=== PATIENT | female | born 1960 | race Caucasian/White ===

== ENCOUNTER 2024-02-28 10:27 | Emergency (ER) | payer OTHER, SELFPAY ==
[2024-02-28] VITALS (10 sets, daily range): BP systolic 94–123; BP diastolic 67–85; PULSE 71–98; RESP 18–98; TEMP 36.7–37.1; O2SAT 18–100; BMI 21.9
[2024-02-28] MEDS: LACTATED RINGERS 1000ML 1,000 ML 999 ML IV (10:56)
--- NOTE | 2024-02-28 11:03 | ECG_ITS ---
APPROVED REPORT Exam: Resting ECG HR:91 bpm ECG Measurements Heart Rate 91 AXES WV 155 P 81 QRSd 81 QRS 79 QT 349 T 74 QTc 398 Conclusion SINUS RHYTHM NORMAL ECG UNCONFIRMED REPORT Electronically signed by : DUNIA NOWAK, 03/02/2024 05:48:31
[2024-02-28 11:04] LABS: Basophils # 0.1 K/mm3 (0-0.2); Basophils % 0.4 % (0.1-2.0); Eosinophils % 0.3 % (0.1-12.0); Hematocrit 33.5 % (37.0-47.0); Lymphocytes # 0.5 K/mm3 (0.7-4.5); Lymphocytes % 3.3 % (10-50); Mean Corpuscular HGB Conc 35.8 g/dL (31.8-35.4); Mean Corpuscular Hemoglobin 28.7 pg (27.0-31.2); Mean Corpuscular Volume 80.1 fl (81-99); Mean Platelet Volume 11.4 fl (7.4-10.4); Monocytes # 0.4 K/mm3 (0.1-1.0); Monocytes % 2.4 % (1.7-9.3); Neutrophils # 14.7 K/mm3 (1.8-7.8); Platelet Count 86 K/mm3 (142-424); Red Blood Count 4.18 M/mm3 (4.20-5.40); Red Cell Distribution Width 13.3 % (11.5-17.5)
[2024-02-28 11:08] LABS: Albumin Level 3.2 g/dl (3.5-5.0); Chloride 94 mmol/L (98-107); Potassium 3.4 mmoL/L (3.5-5.1); Sodium 124 mmol/L (136-145)
[2024-02-28 11:10] LABS: Alanine Aminotransferase 55 U/L (12-78); Anion Gap 17.4 mEq/L (5-15); Aspartate Amino Transferase 38 U/L (14-36); Carbon Dioxide 16 mmol/L (22.0-30.0); Creatinine Clearance Estimated 13 mL/min (50-200); Estimated Glomerular Filt Rate 12 ml/min (>60); GFR (African American) 14 ML/MIN (>60)
[2024-02-28 11:11] LABS: Alkaline Phosphatase 183 U/L (38-126); Bilirubin,Total 1.4 mg/dl (0.2-1.3); Calcium 8.9 mg/dl (8.4-10.2); Globulin 3.1 g/dL (1.3-3.2); Glucose 121 mg/dl (74-100); Lipase 401 U/L (23-300); Magnesium 2.2 mg/dl (1.6-2.3); Total Protein,Serum 6.3 g/dl (6.3-8.2)
[2024-02-28 11:12] LABS: MANUAL DIFFERENTIAL MANUAL DIFFERENTIAL (MANUAL DIFF)
[2024-02-28 11:13] LABS: Blood Urea Nitrogen 88 mg/dl (7-17)
--- NOTE | 2024-02-28 11:14 | PC.NURSE ---
critical finding of bun of 89 notified from lab
--- NOTE | 2024-02-28 11:18 | HMH.EDGENADL ---
Discharge Plan Disposition Chief Complaint: Nausea/Vomiting/Diarrhea Referrals Follow up/Referrals: Provider,Referral, MD [Primary Care Provider] - See instructions Clinical Impressions Clinical Impression: Acute renal failure, Hydronephrosis with renal and ureteral calculous obstruction, Acute hyponatremia, Thrombocytopenia Stand Alone Forms Stand Alone Forms: Transfer Record - ED Instructions Patient Instructions: DI for Diarrhea and Traveler's Diarrhea -- Adult, DI for Diarrhea and Traveler's Diarrhea -- Child, DI for Nausea -- Adult, DI for Nausea -- Child Print Language Print Language: Estonian Discharge ED Provider: Nolan Bell General Adult HPI General Chief complaint: Nausea/Vomiting/Diarrhea Stated complaint: v/d not eaten 6 days lung pain Time Seen by Provider: 02/28/24 10:29 Mode of Arrival: Wheelchair Source of Information: Patient Limitations: No Limitations Description of Symptoms (Recalled from ER Triage Doc. by RN): pt reports 6 days of symptoms. nausea, vomitting, fever, body aches, shortness of air. History of Present Illness HPI narrative: Please note that above description of symptoms, in this electronic medical record under categorization of recalled from ER triage doctor by RN are reflective of an initial nursing assessment, however, is not reflective of my full history and physical exam that was personally taken and clarified. Consequentially, this preceding description of symptoms, which may include the patient's categorized chief complaint in the EMR, do not reflect my personal clinical impression, and the ultimate description of history of present illness and patient stated complaints should be deferred to this section of the note. Unless stated otherwise or congruent with this section of the note, additional signs, symptoms, or incongruence should be interpreted as inaccurate with my clinical impression. Related Data Allergies Allergy/AdvReac Type Severity Reaction Status Date / Time amoxicillin Allergy Verified 02/28/24 11:00 oranges Allergy Uncoded 02/28/24 11:00 [facility] Disclaimer: The information contained in this section may have been updated after the patient was seen, as this information can be updated by other users. Social History Smoking Status: Former smoker alcohol intake: never current occupational status: employed Travel in the last 8 weeks: None ROS Obtained: Yes All systems reviewed & no additional complaints except as documented Physical Exam General General appearance: alert Head Head exam: atraumatic and normocephalic Eye Eye exam: Present normal appearance, PERRL and EOMI Neck Neck exam: Present normal inspection, full ROM and trachea midline Respiratory Respiratory exam: Present normal lung sounds bilaterally; Absent respiratory distress, wheezes, stridor, accessory muscle use or prolonged expiratory phase Cardiovascular Cardiovascular exam: Present other (Pulses equal symmetric in upper and lower extremities); Absent regular rate or normal rhythm Abdominal Exam Abdominal exam: Present soft; Absent distention, tenderness, guarding, rebound or pulsatile mass Extremities Exam Extremities exam: Absent edema Neurological Exam Neurological exam: Present alert, oriented X3 and CN II-XII intact; Absent motor sensory deficit Skin Skin exam: Present warm and dry; Absent diaphoresis or erythema Medical Decision Making Medical Records Medical records reviewed: Yes I reviewed the patient's medical records. Screening: Per USPSTF and CDC recommendations, given the prevalence of disease in our region, it is our hospital?s policy to screen for HIV and viral Hepatitis for all patients aged 18 and over and those with ongoing risk factors. Silviano Inquiry Pt receiving controlled substance: No Silviano was queried for this patient: No Vital Signs: 02/28/24 10:29 02/28/24 10:48 02/28/24 11:01 Temperature 98.7 F Temperature Source Oral Pulse Rate 98 H 89 Pulse Rate [Left Radial] 97 H Respiratory Rate 19 Blood Pressure 123/70 114/69 Blood Pressure [Right Arm] 94/71 L Blood Pressure Mean [Right Arm] 78 Blood Pressure Source Blood Pressure Position 02 Sat by Pulse Oximetry 98 98 98 Oxygen Delivery Method Room Air Room Air Room Air 02/28/24 11:37 02/28/24 11:40 02/28/24 12:00 Temperature Temperature Source Pulse Rate 82 85 81 Pulse Rate [Left Radial] Respiratory Rate 18 Blood Pressure 116/71 116/71 120/67 Blood Pressure [Right Arm] Blood Pressure Mean [Right Arm] Blood Pressure Source Automatic Cuff Blood Pressure Position Sitting 02 Sat by Pulse Oximetry 96 99 99 Oxygen Delivery Method Room Air Room Air Room Air 02/28/24 12:30 02/28/24 13:01 02/28/24 13:33 Temperature Temperature Source Pulse Rate 86 88 91 H Pulse Rate [Left Radial] Respiratory Rate Blood Pressure 116/76 113/71 123/85 Blood Pressure [Right Arm] Blood Pressure Mean [Right Arm] Blood Pressure Source Blood Pressure Position 02 Sat by Pulse Oximetry 97 96 100 Oxygen Delivery Method Room Air Room Air Room Air Lab Data Lab Results 02/28/24 10:45: WBC 16.0 H, RBC 4.18 L, Hgb 12.0 L, Hct 33.5 L, MCV 80.1 L, MCH 28.7, MCHC 35.8 H, RDW 13.3, Plt Count 86 L, MPV 11.4 H, Neut % (Auto) 92.0 H, Lymph % (Auto) 3.3 L, [place] % (Auto) 2.4, Eos % (Auto) 0.3, Baso % (Auto) 0.4, Neut # (Auto) 14.7 H, Lymph # (Auto) 0.5 L, [place] # (Auto) 0.4, Eos # (Auto) 0.0, Baso # (Auto) 0.1, Total Counted 100, Neutrophils % (Manual) 94 H, Lymphocytes % (Manual) 6 L, Platelet Estimate Moderate decrease, RBC Morphology Normal, PT 11.3, INR 1.01, APTT 24.3, Sodium 124 L, Potassium 3.4 L, Chloride 94 L, Carbon Dioxide 16 L, Anion Gap 17.4 H, BUN 88 H, Creatinine 3.90 H, Estimated Creat Clear 13, Estimated GFR 12 L*, Est GFR ( Amer) 14 L*, Glucose 121 H, Calcium 8.9, Magnesium 2.2, Total Bilirubin 1.4 H, AST 38 H, ALT 55, Alkaline Phosphatase 183 H, Total Protein 6.3, Albumin 3.2 L, Globulin 3.1, Albumin/Globulin Ratio 1.0 L, Lipase 401 H 02/28/24 11:37: Urine Color Yellow, Urine Appearance Clear, Urine pH 6.0, Ur Specific [place] 1.010, Urine Protein Negative, Urine Glucose (UA) Negative, Urine Ketones Negative, Urine Blood Trace-i, Urine Nitrate Negative, Urine Bilirubin Negative, Urine Urobilinogen 0.2, Ur Leukocyte Esterase Trace, Urine RBC Occasional, Urine WBC Occasional, Ur Squamous Epith Cells 3-5, Amorphous Sediment 1+, Urine Bacteria 1+ 02/28/24 11:51: Lactate 1.3 02/28/24 10:45 02/28/24 10:45 Orders (Tests/Meds): ED MEDICATIONS Discontinued Medications Generic Name Dose Route Start Last Admin Trade Name Freq PRN Reason Stop Dose Admin Lactated Ringer's 1,000 mls @ 999 mls/hr 02/28/24 10:51 02/28/24 10:56 Lactated Ringer's 1000 Ml Bag IV 02/28/24 11:51 999 mls/hr .Q1H1M ONE Administration Sodium Chloride 1,000 mls @ 999 mls/hr 02/28/24 11:24 02/28/24 12:24 Sod Chlor 0.9% 1000ml Bag IV 02/28/24 12:24 999 mls/hr .Q1H1M ONE Administration Cefepime HCl 2 gm/ Sodium 100 mls @ 200 mls/hr 02/28/24 12:45 02/28/24 12:55 Chloride IV 02/28/24 13:14 200 mls/hr ONCE ONE Administration Metronidazole 500 mg in 100 mls @ 100 mls/hr 02/28/24 12:45 02/28/24 13:38 Flagyl 500mg/100ml Ivpb IV 02/28/24 13:44 100 mls/hr ONCE ONE Administration Ondansetron HCl 4 mg 02/28/24 11:22 02/28/24 11:49 Ondansetron 4mg/2ml Vial IV 02/28/24 11:23 Not Given ONCE ONE ORDERS Category Date Time Status CT abdomen pelvis wo con Stat Cat Scan 02/28/24 11:[address] chest wo con Stat Cat Scan 02/28/24 11:23 Completed Complete Blood Count Auto Diff Stat Lab 02/28/24 10:45 Completed Comprehensive Metabolic Panel Stat Lab 02/28/24 10:45 Completed Lactic Acid Stat Lab 02/28/24 11:51 Completed Lipase Stat Lab 02/28/24 10:45 Completed Magnesium Stat Lab 02/28/24 10:45 Completed PT INR [Prothrombin Time INR] Stat Lab 02/28/24 10:45 Completed PTT [Activated Partial Thrombo Time] Stat Lab 02/28/24 10:45 Completed Urinalysis and Microscopic Stat Lab 02/28/24 11:37 Completed Medical Decision Narrative: This is a 63-year-old female presenting with vomiting, diarrhea, shortness of breath, generalized weakness and abdominal pain. Patient states that she has been vomiting and having diarrhea for about 6 days. States it is nonbloody, nonbilious. Having shortness of breath stating that she feels like she needs to take a deep breath, but is unable to. No chest pain, but she has had cough productive of yellow sputum and fevers up to 103 ?F. Also having lower abdominal pain that is intermittent, cramping, across bilateral lower quadrants. Denies urinary symptoms. States that she is unable to tolerate any solid oral intake, but has been tolerating Pedialyte and electrolyte containing fluids and juices. Has tried Tylenol Motrin, but ends of vomiting them. History was obtained via conversation with patient. On arrival, patient hemodynamically stable, alert, oriented x4, appropriate, GCS 15, moving all extremities spontaneously, pupils equal and reactive to light. Full physical exam performed and significant for very clinically well-appearing patient. Moist mucous membranes. Abdomen is soft, minimally tender, nondistended with no overlying skin changes. She has a periumbilical hernia that is reducible. Lungs are clear, cardiac exam without murmurs gallops or rubs. No lower extremity edema.. Differential includes dehydration, metabolic abnormality, endocrinologic abnormality, urinary tract infection, PUD, gastritis, enteritis, gastroenteritis, pancreatitis, SBO, colitis, diverticulitis, nephrolithiasis, UTI, cholecystitis, choledocholithiasis, appendicitis, torsion, hepatitis, aortic pathology, mesenteric ischemia among others Patient placed on continuous cardiac monitoring and continuous pulse ox with initial blood pressure 123/70, heart rate 88, saturation 98% on room air. Independent interpretation of EKG shows sinus rhythm [address] or T wave changes concerning for acute ischemia. VT 155, QRS 81, QTc 398. Normal axis. Patient was given 1 L LR for symptomatic management and correction of underlying abnormalities. Workup independently interpreted and significant for significant hematologic abnormalities including leukocytosis 16, anemia 12.0 and thrombocytopenia with platelets 86,000 with no baseline with which to compare any of these. Patient's chemistry concerning for hyponatremia 124, hypokalemia 3.4, ANDRES with creatinine of 3.9 and BUN 88 consistent with prerenal injury. LFTs with mildly elevated alkaline phosphatase AST and total bilirubin, but nonactionable overall, likely in the setting of severe dehydration. Negative lipase. On independent interpretation of imaging, patient has left-sided hydronephrosis with 9 mm stone. See radiology read for full review of final results. Concern for inflammation of the pelvis with macerated sediment posterior right bladder wall. Given patient's leukocytosis, cefepime and Flagyl were administered given penicillin allergy. [facility] contacted and I spoke to urology who was consulted and case was discussed at length. Graciously accepted patient for transfer. Because patient to be accepted by hospitalist, I contacted the hospitalist as well, spoke to Dr. Laurent with hospital medicine who accepted patient for transfer. Because patient high risk for clinical decompensation if discharged, deemed appropriate for transfer and inpatient admission. Results were relayed to patient who voiced understanding and patient was agreeable to transfer, inpatient admission, and management. Process Design Chemical Engineer disclaimer Much of this encounter note is an electronic claims adjustor spoken language to printed text. Electronic claims adjustor of the spoken language may permit errors. Although I have reviewed the note, some errors may still exist. Critical Care Critical Care Time Critical Care Time: Yes (renal, urology) Attestation: On 02/28/24, the high probability of a clinically significant, sudden or life threatening deterioration of the following system(s) required my full and direct attention, intervention and personal management. The time I documented below is in addition to time spent performing reported procedures but includes the following listed in this critical care notation. Total Time Total Critical Care Time: 65
--- NOTE | 2024-02-28 11:23 | CT_ITS ---
FINAL REPORT TECHNIQUE: Axial images were obtained through the chest without contrast. Coronal and sagittal reconstructions obtained and reviewed. This study was performed with techniques to keep radiation doses as low as reasonably achievable, (ALARA). Individualized dose reduction techniques using automated exposure control or adjustment of mA and/or kV according to the patient's size were employed. CLINICAL HISTORY: lower abd pain and giovani, prod cough COMPARISON: None FINDINGS: There is no mediastinal mass or adenopathy. The heart size is normal. There is no pericardial or pleural effusion. There is a noncalcified nodule in the left upper lobe measuring 10 mm, well-seen on image 32 series 5. IMPRESSION: 10 mm left upper lobe nodule. Per Fleischner criteria, consider 3-month follow-up CT chest or PET/CT. Reviewed, Interpreted and Dictated by Ted Ramos MD Transcribed by Marie Sharma Authenticated and [facility]
--- NOTE | 2024-02-28 11:24 | CT_ITS ---
FINAL REPORT TECHNIQUE: Axial images through the abdomen and pelvis were performed without contrast. This study was performed with techniques to keep radiation doses as low as reasonably achievable, (ALARA). Individualized dose reduction techniques using automated exposure control or adjustment of mA and/or kV according to the patient's size were employed. CLINICAL HISTORY: lower abd pain and v/d, ANDRES COMPARISON: None FINDINGS: Abdomen: There is fatty infiltration of the liver. The gallbladder is contracted. There is a left adrenal mass measuring up to 3.0 cm in diameter with mean attenuation value of 13 Hounsfield units. The right adrenal gland is unremarkable. There is a multitude of small bilateral nonobstructing kidney stones. There is an obstructing stone in the proximal left ureter measuring 7 mm with moderate left hydronephrosis. Pelvis: There is a 3.2 cm partially calcified fibroid in the right side of the uterus. The appendix is unremarkable. The urinary bladder is decompressed. IMPRESSION: Bilateral nonobstructing renal stones. 7 mm obstructing stone proximal left ureter with moderate left hydronephrosis. Fatty liver. 3 cm left adrenal mass, indeterminate. Dedicated adrenal mass protocol CT recommended to fully characterize. Reviewed, Interpreted and Dictated by Ted Ramos MD Transcribed by Marie Sharma Authenticated and . [facility]
[2024-02-28 11:28] LABS: Lymphocytes % 6 % (10-50); Neutrophils % 94 % (42-76); Platelet Estimate Moderate Decrease; RBC Morphology Normal; Total Cells Counted 100
[2024-02-28 11:32] LABS: Activated Partial Thrombo Time 24.3 seconds (22.8-30.6); INR 1.01 (0.9-1.1); Prothrombin Time 11.3 seconds (10.1-12.5)
[2024-02-28 11:40] LABS: Microscopic, Urine URINE MICROSCOPIC (MICROSCOPIC)
[2024-02-28 11:43] LABS: Appearance,Urine CLEAR (Clear); Bilirubin,Urine Negative (Negative); Blood, Urine TRACE-I (Negative); Color,Urine YELLOW (Yellow); Glucose,Urine (UA) Negative (Negative); Ketones,Urine Negative (Negative); Leukocyte Esterase,Urine TRACE (Negative); Nitrate,Urine Negative (Negative); Protein,Urine Negative (Negative); Urobilinogen,Urine 0.2 EU/dl (0.2)
[2024-02-28 11:59] LABS: RBC,Urine Occasional #/hpf (0-3); WBC,Urine Occasional #/hpf (0-3)
[2024-02-28 12:00] LABS: Amorphous Sediment,Urine 1+ /lpf; Bacteria,Urine 1+ /lpf
[2024-02-28 12:10] LABS: Lactic Acid 1.3 mmol/L (0.7-2.1)
[2024-02-28] MEDS: 0.9 % SODIUM CHLORIDE 1000ML 1,000 ML 999 ML IV (12:24)
--- NOTE | 2024-02-28 12:50 | PC.NURSE ---
Called [facility] for a transfer per Dr. Bell for 9MM stone. [facility] stated that they would give us a call back.
[2024-02-28] MEDS: CEFEPIME HCL 2 GM in 0.9 % SODIUM CHLORIDE 100 ML IV (12:55)
[2024-02-28] MEDS: METRONIDAZ/SOD CHL 500 MG/100 ML PIGGYBACK 100 MG IV (13:38)
--- NOTE | 2024-02-28 13:55 | PC.NURSE ---
Report called to Rashida Jaimes RN at [facility]. Pt to go to [facility]
== END 2024-02-28 14:11 | disposition short-term general hospital (02) ==
PROVIDERS: Emergency Provider Emergency Medicine
DX: D69.6 Thrombocytopenia, unspecified (principal); E87.1 Hypo-osmolality and hyponatremia; N13.2 Hydronephrosis with renal and ureteral calculous obstruction; N17.9 Acute kidney failure, unspecified; R11.2 Nausea with vomiting, unspecified; R50.9 Fever, unspecified; M79.10 Myalgia, unspecified site; R06.02 Shortness of breath
CPT/HCPCS: 71250; 74176; 80053; 81001; 83605; 83690; 83735; 85007; 85025; 85027; 85610; 85730; 93005; 96361; 96365; 96367; 96374; 99291; J7030; J7120